=== PATIENT | male | born 1945 | race Caucasian/White ===

== ENCOUNTER 2024-01-11 08:00 | Outpatient (CLI) | payer MEDICARE ==
[2024-01-11] MEDS ORDERED: Regadenoson 0.4 MG/5 ML SYRINGE ONE (09:45)
== END 2024-01-11 08:01 | disposition home or self-care (01) ==
LOC: NM 08:00
PROVIDERS: ATTEND Internal Medicine
DX: R06.09 Other forms of dyspnea (principal); R60.0 Localized edema
CPT/HCPCS: 78452; 93017; A9500; J2785 ×2